=== PATIENT | female | born 1990 | race Caucasian/White ===

== ENCOUNTER 2016-11-28 06:12 | Inpatient (IN) | payer OTHER ==
[~2016-11-28] VITALS: Ht 162.6 cm; Wt 63.0 kg
[2016-11-28 06:49] LABS: HCT 31.7 % (37.0-47.0); HGB 10.1 g/dl (12.5-16.0); MCH 29.2 pg (25.0-31.0); MCHC 31.9 g/dL (32.0-36.0); MCV 91.6 fL (78.0-100.0); MPV 10.4 fL (6.0-9.5); RBC 3.46 M/uL (4.20-5.40); RDW 13.2 % (11.5-14.0); WBC 10.5 K/uL (4.0-10.5)
[2016-11-29 07:08] LABS: HCT 29.7 % (37.0-47.0); HGB 9.6 g/dl (12.5-16.0); MCH 29.7 pg (25.0-31.0); MCHC 32.3 g/dL (32.0-36.0); MPV 10.3 fL (6.0-9.5); RBC 3.23 M/uL (4.20-5.40); RDW 13.2 % (11.5-14.0); WBC 8.9 K/uL (4.0-10.5)
== END 2016-11-30 12:30 | disposition home or self-care (01) | DRG 775 ==
LOC: FOB 06:12
PROVIDERS: ADMIT Obstetrics & Gynecology
PROC: 10E0XZZ Delivery of Products of Conception, External Approach (ICD-10-PCS; principal; 2016-11-28)
PROC: 3E033VJ Introduction of Other Hormone into Peripheral Vein, Percutaneous Approach (ICD-10-PCS; 2016-11-28)
PROC: 10907ZC Drainage of Amniotic Fluid, Therapeutic from Products of Conception, Via Natural or Artificial Opening (ICD-10-PCS; 2016-11-28)
PROC: 4A1H74Z Monitoring of Products of Conception, Cardiac Electrical Activity, Via Natural or Artificial Opening (ICD-10-PCS; 2016-11-28)
DX: O36.8130 Decreased fetal movements, third trimester, not applicable or unspecified (principal); D69.6 Thrombocytopenia, unspecified; O99.12 Other diseases of the blood and blood-forming organs and certain disorders involving the immune mechanism complicating childbirth; O36.5930 Maternal care for other known or suspected poor fetal growth, third trimester, not applicable or unspecified; D62 Acute posthemorrhagic anemia; O69.81X0 Labor and delivery complicated by cord around neck, without compression, not applicable or unspecified; Z3A.39 39 weeks gestation of pregnancy; Z37.0 Single live birth; O99.344 Other mental disorders complicating childbirth; F31.9 Bipolar disorder, unspecified; J45.909 Unspecified asthma, uncomplicated; O99.03 Anemia complicating the puerperium; D50.9 Iron deficiency anemia, unspecified; Z88.9 Allergy status to unspecified drugs, medicaments and biological substances; F41.9 Anxiety disorder, unspecified
CPT/HCPCS: 36415; J2300